=== PATIENT | female | born 1985 | race Caucasian/White ===

== ENCOUNTER 2023-12-14 21:51 | Emergency (ER) | payer OTHER, SELFPAY ==
[2023-12-14 21:56] VITALS: BP 125/70
[2023-12-14 21:58] VITALS: BP 125/70
[2023-12-14 22:00] VITALS: BP 129/66
[2023-12-14 22:14] LABS: % Basophils 0.3 % (0-2); % Eosinophils 5.9 % (0-6); % Immature Granulocytes 0.3 % (0-0.5); % Lymphocytes 40.2 % (20.5-51.1); % Monocytes 6.5 % (1.7-9.3); % Neutrophils 46.8 % (42.2-75.2); Absolute Eosinophils 0.4 10^3/uL (0-0.7); Absolute Lymphocytes 2.5 10^3/uL (1.2-3.4); Absolute Monocytes 0.4 10^3/uL (0.1-0.6); Absolute Neutrophils 2.9 10^3/uL (1.4-6.5); Hematocrit 38.7 % (37.0-47.0); Hemoglobin 13.2 g/dL (12.0-16.0); Mean Corp Hgb Conc. 34.1 g/dL (33.0-37.0); Mean Corpuscular Hgb 28.9 pg (27.0-31.0); Mean Corpuscular Volume 84.7 fL (81.0-99.0); Mean Platelet Volume 11.2 fL (7.4-10.4); Nucleated Red Blood Cells % 0 %; Platelet Count 233 10^3/uL (130-400); Red Blood Cell Count 4.57 10^6/uL (4.20-5.40); Red Cell Dist. Width 12.7 % (11.5-14.5); White Blood Cell Count 6.3 10^3/uL (4.8-10.8)
--- NOTE | 2023-12-14 22:16 | ED.GENMED ---
History of Present Illness
<Arya Skinner, DO - Last Filed: 12/16/23 22:08>
General
Chief Complaint: Change in Mental Status
Source: patient
Exam Limitations: none
Time Seen by Provider: 12/14/23 22:05
Nursing documentation reviewed up to this point in time: agreed with
Travel History
Have you had any contact with someone who has COVID-19?: Unable to Answer
Do you have any symptoms of coronavirus? Fever > 100 degrees, chills, cough, shortness of breath, sore throat, loss of taste or smell, muscle aches, or headache?: Unable to Answer
History of Present Illness
History of Present Illness:
38-year-old female presents via EMS for altered mental status. Apparently patient was dog sitting at someone's house. Someone went to check on her and found her passed out on a couch. She was not making any sense. There were bottles of Ambien,
Xanax, and Adderall on the table. Patient not answering questions appropriately. She is able to follow commands and track with her eyes. She does monitor simple sentences without slurring.
Vital signs are stable. Patient not hypoxic
Nursing note reviewed. I agree with nursing documentation up to this point in time.
Home Meds and allergies reviewed.
NUMBER AND COMPLEXITY OF PROBLEMS ADDRESSED AT THE ENCOUNTER
� Chronic conditions affecting care: Depression, borderline personality disorder, anxiety, PTSD
� Acute Exacerbation and/or Progression of Chronic Illness: Unknown if this is an acute process
� Differential Diagnosis includes: Overdose, CVA
AMOUNT AND/OR COMPLEXITY OF DATA TO BE REVIEWED AND ANALYZED
I performed an independent evaluation of the following and my interpretation is:
EKG: EKG shows normal sinus rhythm rate of 100 with no evidence of acute ischemia present. Normal intervals. QRS duration is 68, QTc is 430 corrected. No old EKG available for comparison.
CT:
X-rays:
Ultrasound:
Laboratory Studies: White blood cell count is 6.3 and normal
Other:
Review of other/old records:
Clinical information was obtained by an independent historian: EMS report
Prescriptions/Medications Considered but not given:
Further testing considered but not performed:
RISK OF COMPLICATIONS AND/OR MORBIDITY OR MORTALITY OF PATIENT MANAGEMENT
Social determinants of health affecting care: Unknown social support
Discussion with other providers:
Escalation of care including admission/observation vs risk of discharge considered:
CRITICAL CARE NOTE:
Total Time (exclusive of procedures):
Update:
Past History
<DO Jazmín Irene Last Filed: 12/16/23 22:08>
Past History
ED Past Medical History: Asthma, Psychiatric (Anxiety) and Other (Ovarian cyst)
ED Past Surgical History: None
Social History
Tobacco: Former smoker
Alcohol: None
Personal:
Living: with family
Employment: Employed
Family History
Family History: Negative Hypertension or Early CAD
Phy Exam
<DO Jazmín Irene Last Filed: 12/16/23 22:08>
General Physical Exam
General Presentation: well appearing and no apparent distress
General Skin: warm and dry
General Habitus: normal
General Mental: alert
General Hydration: appears well hydrated
ENT Exam
ENT Exam: EOMI, pharynx normal, neck supple and normocephalic
Eye Exam
Eye Exam: PERRL, cornea clear and conjunctiva normal
Cardiovascular Exam
Cardiovascular Exam: regular rate/rhythm, no edema, no murmur and normal peripheral pulses
Pulmonary Exam
Pulmonary Exam: lungs clear, no respiratory distress, no rales, no crackles, no rhonchi, no stridor, no wheezing and no cough
Gastrointestinal Exam
Gastrointestinal Exam: normal bowel sounds, non tender, soft, no organomegaly, no pulsatile mass and non distended
Neurological Exam
Neurological Exam: alert, oriented x3, no motor deficits and speech normal
Musculoskeletal Exam
Musculoskeletal Exam: full ROM and no edema
Skin Exam
Skin Exam: normal color, warm/dry, no rash and no petechia
Psychiatric Exam
Psychiatric Exam: anxious and labile
Course
<Arya Skinner, DO - Last Filed: 12/16/23 22:08>
Orders/Labs/Results
Orders:
Orders
12/14/23 22:03
EKG [Electrocardiogram (*1)] Urgent
Reason for Study: Tachycardia
EKG- Treatment ONCE
12/14/23 22:05
Complete Blood Count/With Diff Urgent
Comprehensive Metabolic Panel Urgent
12/14/23 22:14
Bedside Glucose- Treatment ONCE
Cardiac Monitoring- Treatment ONCE
Urinalysis Reflex To Culture Urgent
Date Specimen was Collected: 12/15/23
Time Specimen was Collected: 00:15
Urine Drug Abuse Screen Urgent
Date Specimen was Collected: 12/15/23
Time Specimen was Collected: 00:15
Test Result ONCE
12/14/23 22:15
Crisis Consult Routine
Reason for Consult: altered mental status, possible overdose
12/14/23 22:18
Acetaminophen Urgent
Alcohol Urgent
HCG, Serum Qualitative Screen Urgent
PTT Urgent
Prothrombin Time Urgent
Salicylate Urgent
12/14/23 22:23
CT Head W/o Iv Contrast Urgent
Comment:
Reason For Exam: ams
12/15/23 00:00
CR Chest - 2 Views Urgent
Reason For Exam: wheezing
12/15/23 00:16
Fentanyl, Urine Urgent
Urine Microscopic Reflex Cult Urgent
Urine Culture Urgent
CHARO Source: U
Specimen Description:
Date Specimen was Collected: 12/15/23
Time Specimen was Collected: 00:15
12/15/23 03:30
COVID-19 Antigen Urgent
Source: Nasal Swab
12/15/23 04:51
Ipratropium/Albuterol Sulfate [Duoneb] 3 ml INH R NOW ONE
12/15/23 06:54
Consult Notification Routine
Specialty to Notify: Psychiatry
Date consulting provider notified: 12/15/23
Time consulting provider notified: 07:32
Notified:: Provider
Comment: via TT
PSYCHIATRY CONSULT Urgent
Consulting Provider: Rene Ferrara
Was physician already notified: No
Reason for consult: ams, refusing to speak
Abnormal Lab Results
12/14/23 12/14/23 12/14/23
22:05 22:18 22:34
MPV 11.2 H fL
(7.4-10.4)
BUN 20 H mg/dl
(7-17)
Glucose 168 H mg/dl
(70-99)
AST 53 H U/L
(14-36)
ALT 61 H U/L
(0-35)
Urine Ketones
Leukocyte Esterase Rfl
Urine RBC
Urine WBC (Reflex)
Urine Bacteria (Reflex)
Urine Glucose
Salicylates < 1.0 L mg/dl
(2.0-20.0)
Acetaminophen < 10 L ug/ml
(10-30)
Ur Tricyclics Screen
U Benzodiazepines Scrn
U Marijuana (THC) Screen
POC Glucose 161 H mg/dl
(70-99)
12/15/23
00:16
MPV
BUN
Glucose
AST
ALT
Urine Ketones Trace A
(Negative)
Leukocyte Esterase Rfl 1+ A
(Negative)
Urine RBC 3-6 A /HPF
(0-2)
Urine WBC (Reflex) >100 A /HPF
(0-5)
Urine Bacteria (Reflex) Many A
(Negative)
Urine Glucose 2+ A
(Negative)
Salicylates
Acetaminophen
Ur Tricyclics Screen Positive H
(Negative)
U Benzodiazepines Scrn Positive H
(Negative)
U Marijuana (THC) Screen Positive H
(Negative)
POC Glucose
12/14/23 22:05
12/14/23 22:05
Vital Signs
Initial and Last Documented VS:
Initial Vital Signs
Temp Pulse Resp BP Pulse Ox
99 F 108 16 125/70 97
12/14/23 21:56 12/14/23 21:56 12/14/23 21:56 12/14/23 21:56 12/14/23 21:56
Last Documented Vital Signs
Temp Pulse Resp BP Pulse Ox
98.4 F 92 20 135/66 97
12/15/23 04:00 12/15/23 12:10 12/15/23 12:10 12/15/23 12:10 12/15/23 12:10
<Neno Frankel MD - Last Filed: 12/15/23 12:11>
Orders/Labs/Results
Orders:
Orders
12/14/23 22:03
EKG [Electrocardiogram (*1)] Urgent
Reason for Study: Tachycardia
EKG- Treatment ONCE
12/14/23 22:05
Complete Blood Count/With Diff Urgent
Comprehensive Metabolic Panel Urgent
12/14/23 22:14
Bedside Glucose- Treatment ONCE
Cardiac Monitoring- Treatment ONCE
Urinalysis Reflex To Culture Urgent
Date Specimen was Collected: 12/15/23
Time Specimen was Collected: 00:15
Urine Drug Abuse Screen Urgent
Date Specimen was Collected: 12/15/23
Time Specimen was Collected: 00:15
Test Result ONCE
12/14/23 22:15
Crisis Consult Routine
Reason for Consult: altered mental status, possible overdose
12/14/23 22:18
Acetaminophen Urgent
Alcohol Urgent
HCG, Serum Qualitative Screen Urgent
PTT Urgent
Prothrombin Time Urgent
Salicylate Urgent
12/14/23 22:23
CT Head W/o Iv Contrast Urgent
Comment:
Reason For Exam: ams
12/15/23 00:00
CR Chest - 2 Views Urgent
Reason For Exam: wheezing
12/15/23 00:16
Fentanyl, Urine Urgent
Urine Microscopic Reflex Cult Urgent
Urine Culture Urgent
CHARO Source: U
Specimen Description:
Date Specimen was Collected: 12/15/23
Time Specimen was Collected: 00:15
12/15/23 03:30
COVID-19 Antigen Urgent
Source: Nasal Swab
12/15/23 04:51
Ipratropium/Albuterol Sulfate [Duoneb] 3 ml INH R NOW ONE
12/15/23 06:54
Consult Notification Routine
Specialty to Notify: Psychiatry
Date consulting provider notified: 12/15/23
Time consulting provider notified: 07:32
Notified:: Provider
Comment: via TT
PSYCHIATRY CONSULT Urgent
Consulting Provider: Rene Ferrara
Was physician already notified: No
Reason for consult: ams, refusing to speak
Abnormal Lab Results
12/14/23 12/14/23 12/14/23
22:05 22:18 22:34
MPV 11.2 H fL
(7.4-10.4)
BUN 20 H mg/dl
(7-17)
Glucose 168 H mg/dl
(70-99)
AST 53 H U/L
(14-36)
ALT 61 H U/L
(0-35)
Urine Ketones
Leukocyte Esterase Rfl
Urine RBC
Urine WBC (Reflex)
Urine Bacteria (Reflex)
Urine Glucose
Salicylates < 1.0 L mg/dl
(2.0-20.0)
Acetaminophen < 10 L ug/ml
(10-30)
Ur Tricyclics Screen
U Benzodiazepines Scrn
U Marijuana (THC) Screen
POC Glucose 161 H mg/dl
(70-99)
12/15/23
00:16
MPV
BUN
Glucose
AST
ALT
Urine Ketones Trace A
(Negative)
Leukocyte Esterase Rfl 1+ A
(Negative)
Urine RBC 3-6 A /HPF
(0-2)
Urine WBC (Reflex) >100 A /HPF
(0-5)
Urine Bacteria (Reflex) Many A
(Negative)
Urine Glucose 2+ A
(Negative)
Salicylates
Acetaminophen
Ur Tricyclics Screen Positive H
(Negative)
U Benzodiazepines Scrn Positive H
(Negative)
U Marijuana (THC) Screen Positive H
(Negative)
POC Glucose
12/14/23 22:05
12/14/23 22:05
Vital Signs
Initial and Last Documented VS:
Initial Vital Signs
Temp Pulse Resp BP Pulse Ox
99 F 108 16 125/70 97
12/14/23 21:56 12/14/23 21:56 12/14/23 21:56 12/14/23 21:56 12/14/23 21:56
Last Documented Vital Signs
Temp Pulse Resp BP Pulse Ox
98.4 F 92 20 135/66 97
12/15/23 04:00 12/15/23 12:10 12/15/23 12:10 12/15/23 12:10 12/15/23 12:10
<Arya Skinner DO - Last Filed: 12/16/23 22:08>
*Critical Care Note
Total Time (30-74mins, 75-104mins- exclusive of procedures): Not Applicable
<Arya Skinner DO - Last Filed: 12/16/23 22:08>
Update Note
Update Note:
12/15/2023 0238 AM: Patient is now speaking. She does not appear to be confused though she does not remember what brought her in.
<Neno Frankel MD - Last Filed: 12/15/23 12:11>
Update Note
Update Note:
12/15/2023 0238 AM: Patient is now speaking. She does not appear to be confused though she does not remember what brought her in.
1210: Fully alert. Sitting in the chair. Try to get a ride home. Nontoxic. Seen by psychiatry and cleared
ED Attending Note
<Arya Skinner DO - Last Filed: 12/16/23 22:08>
-
Portions of this chart may have been created with voice recognition software.� Occasional wrong word or��sound alike� substitutions may have occurred due to the inherent limitations of voice recognition software.
Discharge Plan
Departure
Patient Disposition: Home (Routine Discharge)
Date of Disposition: 12/15/23
Time of Disposition: 12:08
Patient with high blood pressure during this ER visit?: No
Discharge Problem:
Altered mental status
Instructions: Altered Mental Status (DC), BLOOD PRESSURE
Prescriptions:
No Action
citalopram [Celexa] 40 MG tablet
40 mg PO DAILY
dextroamphetamine-amphetamine [Adderall] 20 MG tablet
20 mg PO BID
Referrals:
UNKNOWN - PT NOT,INTERVIEWE [Family Provider] -
Activity Restrictions/Additional Instructions:
Follow-up closely with your primary physician.
Return with any concerns including confusion change in mental status fever headache etc.
Interventions
Interventions:
*Risk Screen - Suicide Last Done: 12/14/23 21:56
*General Assessment Last Done: 12/14/23 21:56
*Neglect/Abuse Screening Last Done: 12/14/23 21:56
ED- Fall Risk Assessment Last Done: 12/15/23 03:34
*ED COVID-19 Vaccine History Last Done: 12/14/23 21:56
*Nursing Disposition Last Done: 12/15/23 13:44
ED- Pulmonary Assessment Last Done: 12/15/23 03:34
ED- Neurological Assessment Last Done: 12/15/23 07:48
ED- Cardiac Assessment Last Done: 12/15/23 07:48
ED Swallowing Screen Last Done: 12/15/23 03:34
Discharge Date and Time
Discharge Date/Time: 12/15/23 13:44
Print Language: ICELANDIC
[2023-12-14 22:27] LABS: ALT (SGPT) 61 U/L (0-35); AST (SGOT) 53 U/L (14-36); Albumin 4.6 g/dl (3.5-5.0); Alkaline Phosphatase 85 U/L (38-126); Blood Urea Nitrogen 20 mg/dl (7-17); Calcium 9.7 mg/dl (8.4-10.2); Carbon Dioxide 26 mmol/L (22-30); Chloride 103 mmol/L (98-107); Glucose 168 mg/dl (70-99); Potassium 4.2 mmol/L (3.5-5.1); Sodium 139 mmol/L (135-145); Total Bilirubin 0.6 mg/dl (0.2-1.3); Total Protein 7.3 g/dl (6.3-8.2); eGFR > 60.00
[2023-12-14 22:34] LABS: INR 0.93; PT 12.3 Sec (11.4-14.6)
[2023-12-14 22:35] LABS: APTT 23.8 Sec (23.4-35.0)
[2023-12-14 22:36] LABS: Acetaminophen < 10 ug/ml (10-30); Salicylate < 1.0 mg/dl (2.0-20.0)
[2023-12-14 22:36] LABS: Glucose - Point of Care 161 mg/dl (70-99)
[2023-12-14 22:39] LABS: Alcohol None Detected
[2023-12-14 22:43] LABS: HCG, Serum Qualitative Screen Negative
[2023-12-14 23:00] VITALS: BP 122/63
[2023-12-15] VITALS (12 sets, daily range): BP systolic 105–135; BP diastolic 47–89
[2023-12-15 00:39] LABS: Amphetamines Negative (Negative); Barbiturates Negative (Negative); Benzodiazepines Positive (Negative); Buprenorphine Negative (Negative); Cocaine Negative (Negative); Marijuana Positive (Negative); Methadone Negative (Negative); Methamphetamines Negative (Negative); Opiates Negative (Negative); Phencyclidine Negative (Negative); Tricyclic Antidepressants Positive (Negative)
[2023-12-15 00:44] LABS: Urine Albumin Trace (Neg - Trace); Urine Bilirubin Negative (Negative); Urine Character Slightly Cloudy (Clear); Urine Color Yellow; Urine Glucose 2+ (Negative); Urine Ketone Trace (Negative); Urine Leukocyte 1+ (Negative); Urine Nitrite Negative (Negative); Urine Occult Blood Negative (Negative); Urine Urobilinogen Negative (Neg - 1+)
[2023-12-15 00:52] LABS: Urine Amorphous Seen; Urine Mucus Moderate; Urine Squamous Cell >30 /LPF (Few)
[2023-12-15 00:53] LABS: Urine Bacteria Many (Negative); Urine White Cell >100 /HPF (0-5)
[2023-12-15 00:57] LABS: Fentanyl, Urine Negative (Negative)
[2023-12-15 03:56] LABS: COVID-19 Antigen Negative (Negative)
[2023-12-15] MEDS: DUONEB 3 ML INH (04:53)
--- NOTE | 2023-12-15 11:36 | CS.PSYCHR ---
Consult Summary - Psychiatry
-
Pt is a 38 year-old female who presented to ED via EMS for altered mental status. Pt reportedly was dog sitting at someone's house. Pt was found her passed out on a couch, in a confused state. Per record, there were Rx bottles of Ambien, Xanax,
and Adderall on the table. On arrival, pt was not answering questions appropriately. She was able to follow commands and track with her eyes, stating simple sentences. Pt was assessed by Crisis overnight and cleared, denied any OD or SI.
Psychiatry asked to evaluate. Pt awake, resting in bed, in no apparent distress. She is still hesitant to answer some questions, but gives coherent responses. Pt denies any distress, denies SI, denies she overdosed. Pt states she feels okay to
return home. Reviewed outpatient chart; pt is seen at [facility] for medication mgt and therapy. She is prescribed Xanax 1 mg TID, Adderall 30 mg BID, Ambien 10 mg HS, Seroquel 50 mg TID and 100 mg HS, Wellbutrin XL 450 mg QD. Pt has been on this
regimen for years; verified recent Rx fills on PDMP.
Psych Hx: no inpatient treatment or suicide attempts. Hx of Depression, PTSD, Borderline Personality d/o, ADHD from childhood
Med mgt at [facility] with ANGEL Garcia. Pt attends Individual and Group DBT (therapy). Pt has [employer] lead, Nurse Navigator, and the REACH Program (rehabilitative) at [facility]
SH: lives with boyfriend in [place], has partial custody of her 10 yo son. Pt denies alcohol use. UDS + for THC
MSE: awake, mostly alert, still mildly 'groggy', hesitant to answer at times. Speech coherent, thought clear, no signs of psychosis. Mood okay, denies SI. Affect appropriate. No agitation. Pt denies any acute issues. Insight appears limited
Imp: Delirium, likely due to polypharmacy, appears to be clearing.
Hx of depression and mood instability/Borderline personality d/o, appears stable. Pt denies any SI
Cannabis use, unspecified- UDS + for THC
Rec: Pt appears stable to return to Outpatient medication mgt and therapy at [facility]. Pt has extensive therapy, case mgt and other supports.
== END 2023-12-15 13:44 | disposition home or self-care (01) ==
LOC: EMR 21:51
PROVIDERS: Student in an Organized Health Care Education/Training Program; CONSULT PHYSICIAN Psychiatry & Neurology Psychiatry; EMERGENCY PHYSICIAN Student in an Organized Health Care Education/Training Program
DX: R41.82 Altered mental status, unspecified (principal); F32.A Depression, unspecified; F60.3 Borderline personality disorder; F41.9 Anxiety disorder, unspecified; F43.10 Post-traumatic stress disorder, unspecified; Z87.891 Personal history of nicotine dependence; Z11.52 Encounter for screening for COVID-19
CPT/HCPCS: 99285; 94640; 70450; 71046; 80053; 80143; 80179; 80306; 80307; 81003; 81015; 82077; 82962; 84703; 85025; 85610; 85730; 87086; 87811; 93005